=== PATIENT | male | born 1935 | race African-American/Black ===

== ENCOUNTER 2018-02-26 17:56 | Emergency (ER) | payer MEDICARE ==
[~2018-02-26] VITALS: Ht 170.2 cm; Wt 73.3 kg
[~2018-02-26 17:56] MED LIST: ASA; VITAMINS
[2018-02-26 19:32] LABS: EOSINOPHILS % 4.2 % (0.0-5.0); HEMATOCRIT. 38.4 % (42.0-52.0); HEMOGLOBIN. 13.1 g/dL (14.0-18.0); LYMPHOCYTES % 30.4 % (20.0-50.0); MEAN CORPUSCULAR HEMOGLOBIN 31.9 pg (28.0-32.0); MEAN CORPUSCULAR VOLUME 93.7 fL (80.0-94.0); MEAN PLATELET VOLUME 6.9 fl (7.4-10.4); MONOCYTES % 8.5 % (2.0-8.0); NEUTROPHILS % 55.9 % (40.0-76.0); PLATELET 300 x1000/uL (130-400); RED BLOOD CELL COUNT 4.09 mill/uL (4.7-6.1); RED CELL DISTRIBUTION WIDTH 13.9 % (11.6-14.6)
[2018-02-26 19:40] LABS: CHLORIDE 109 mEq/L (98-107)
[2018-02-26 19:52] LABS: CLARITY URINE CLEAR (CLEAR); COLOR URINE YELLOW (YELLOW); KETONES URINE NEGATIVE (NEGATIVE); LEUKOCYTE ESTERASE URINE NEGATIVE (NEGATIVE); NITRITE URINE NEGATIVE (NEGATIVE); OCCULT BLOOD URINE NEGATIVE (NEGATIVE); PROTEIN URINE NEGATIVE (NEGATIVE); SPECIFIC GRAVITY URINE 1.023 (1.005-1.030)
[2018-02-26 21:03] VITALS: BP 129/68
== END 2018-02-26 21:03 | disposition home or self-care (01) ==
LOC: ER 18:46
DX: R55 Syncope and collapse (principal); I44.0 Atrioventricular block, first degree; R03.0 Elevated blood-pressure reading, without diagnosis of hypertension; Z90.89 Acquired absence of other organs
CPT/HCPCS: 36415; 71045; 83880; 84484; 93005; 99284

== ENCOUNTER 2022-07-03 12:54 | Emergency (ER) | payer MEDICARE, OTHER ==
[~2022-07-03] VITALS: Ht 170.2 cm; Wt 77.2 kg
[2022-07-03 13:01] VITALS: BP 141/82
[2022-07-03] MEDS ORDERED: VITS42.53 TP (13:53)
== END 2022-07-03 17:24 | disposition home or self-care (01) ==
LOC: ER 13:15
DX: S00.81XA Abrasion of other part of head, initial encounter (principal); W01.0XXA Fall on same level from slipping, tripping and stumbling without subsequent striking against object, initial encounter; Y93.89 Activity, other specified; Y92.89 Other specified places as the place of occurrence of the external cause; Y99.8 Other external cause status
CPT/HCPCS: 70486; 99284